=== PATIENT | female | born 1950 | race Caucasian/White ===

== ENCOUNTER → 2018-04-04 09:04 | Outpatient (CLI) | payer OTHER, MEDICARE, SELFPAY ==
--- NOTE | 2018-04-04 | DI.CT.S_ITS ---
PROCEDURE: CT CHEST WO CON INDICATIONS: atelectasis TECHNIQUE: Noncontrast 5 mm thick sections acquired from the pulmonary apices to the posterior costophrenic angles. 7 mm thick coronal and sagittal MIP reformats were then acquired. For radiation dose reduction, the following was used: automated exposure control, adjustment of mA and/or kV according to patient size. COMPARISON: , CT, ABDOMEN/PELVIS WITH CONTRAST, 03/11/2011, 12:39. [facility], CT, CT ANGIO CHEST PE, 09/23/2017, 10:53. FINDINGS: Image quality: Excellent. Lungs and pleura: An ill-defined 10 mm in diameter groundglass nodules present within the right middle lobe (series 3, image 30). This is unchanged when compared with the study dated 09/23/17. Mild atelectasis is present in the dependent lung bases. A 6 mm diameter nodule is present within the posterior right upper lobe (series 3, image 12). This is unchanged when compared with the study dated 09/23/17. No acute airspace opacities. No pleural effusion or pneumothorax. Mediastinum: Heart size is normal. No pericardial effusion. No mediastinal adenopathy by size criteria. Thoracic aorta and central pulmonary arteries are normal in size. Scattered atheromatous calcifications are present within the aortic arch. Esophagus is normal in caliber. No hiatal hernia. Bones and chest wall: No suspicious bony lesions. Severe degenerative changes present throughout the thoracic spine. No vertebral body compression fractures. No axillary or supraclavicular adenopathy by size criteria. Thyroid gland is unremarkable. Abdomen: Visualized upper abdominal solid organs and bowel loops appear normal in the absence of contrast. IMPRESSION: 1. Stable 10 mm ground glass nodule within the right middle lobe when compared with the study dated 09/23/17. Annual surveillance for 3 years recommended. Please see followup guidelines below. 2. Stable solid 5 mm pulmonary nodule in the left upper lobe when compared with the study dated 09/23/17. Twelve-month followup recommended. Fleischner Society criteria for SOLID lung nodule followup. Nodule size (mm)Low-risk patientHigh-risk patient?4No follow-up neededFollow-up at 12 mo; if no change, no further follow-up>[id number]-nf CT at 12 mo; if no change, no further follow-up needed.Initial follow-up CT at 6-12 mo, then 18-24 mo if no change. >6-8Initial follow-up CT at 6-12 mo, then 18-24 mo if no change. Initial follow-up CT at 3-6 mo, then 9-12 mo and 24 mo if no change. >8Follow-up CT at 3, 9, 24 mo. Or PET and/or biopsy.Same as for low-risk pts. Fleischner Society criteria for SUB-SOLID lung nodule followup. Solitary pure ground-glass nodules5 mm or lessNo followup needed. >5 mm3 mo follow-up CT to confirm persistence. Then annual CT for 3 years. Part-solid nodules3 mo follow-up CT to confirm persistence. If persistent with solid component <5 mm, annual CT for at least 3 years. If solid component is 5 mm or more, biopsy or surgical resection. Consider PET-CT for lesions > 10 mm. Multiple sub-solid nodulesPure ground glass nodules [address] at 2 and 4 years. Pure ground glass nodules >5 mm without dominant lesion. [address] to confirm persistence, then annual followup CT for at least 3 years. Dominant nodule(s) with part-solid or solid component. [address] to confirm persistence. If persistent, consider biopsy or surgical resection, chito if lesions have >5 mm solid component. Dictated by: Jayashree Hutchinson M.D. on 04/04/2018 at 9:41 Approved by: Jayashree Hutchinson M.D. on 04/04/2018 at 9:55
== END ==
PROVIDERS: Visit Provider Internal Medicine
DX: R91.8 Other nonspecific abnormal finding of lung field (principal)
CPT/HCPCS: 71250

== ENCOUNTER → 2019-10-16 14:32 | Outpatient (CLI) | payer MEDICARE, SELFPAY ==
--- NOTE | 2019-10-16 | DI.MG.S_ITS ---
BILATERAL DIGITAL SCREENING MAMMOGRAM 3D/2D WITH CAD: 10/16/2019 CLINICAL: Routine screening. Family history of breast cancer. Comparison is made to exams dated: 06/09/2015 mammogram, 05/22/2014 mammogram, and 03/31/2011 mammogram - [facility]. There are scattered fibroglandular elements in both breasts. Current study was also evaluated with a Computer Aided Detection (CAD) system. There are susan-shaped calcifications in both breasts consistent with benign secretory calcifications. There are right breast vascular calcifications. No significant masses, calcifications, or other findings are seen in either breast. IMPRESSION: There is no mammographic evidence of malignancy. A 1 year screening mammogram is recommended. This exam was interpreted at Station ID: [id number]. NOTE: For mammograms, a report in lay terms will be sent to the patient. Approximately 15% of breast malignancies will not be visualized mammographically. In the management of a palpable breast mass, a negative mammogram must not discourage biopsy of a clinically suspicious lesion. Electronically Signed By: Martin Cason M.D. ecl/:10/17/2019 17:18:40 letter sent: Normal Exam ACR BI-RADS Category 2: Benign Finding(s) 3342F
== END ==
PROVIDERS: Visit Provider Internal Medicine
DX: Z12.31 Encounter for screening mammogram for malignant neoplasm of breast (principal); Z80.3 Family history of malignant neoplasm of breast
CPT/HCPCS: 77063; 77067

== ENCOUNTER → 2019-10-23 13:00 | Outpatient (CLI) | payer MEDICARE, SELFPAY ==
--- NOTE | 2019-10-23 | DI.CT.S_ITS ---
PROCEDURE: CT CHEST WO CON INDICATIONS: Solitary pulmonary nodule TECHNIQUE: Noncontrast 2.0-2.5 mm thick sections acquired from the pulmonary apices to the posterior costophrenic angles. 7 mm thick axial MIP and 5 mm coronal and sagittal reformats were then acquired. A low radiation dose technique was utilized. COMPARISON: [facility], CT, CT CHEST WO CON, 04/04/2018, 9:10. FINDINGS: Image quality: Diagnostic, given the low radiation dose technique. Lungs and pleura: An ill-defined flat, a rounded 10 mm nodule is present along the right minor fissure corresponding to the nodule previously mentioned. 7 mm, smoothly marginated, pleural-based nodule is present posteriorly in the left upper lobe (3/57) previously present, but less well-seen secondary to slice selection. There are posterior medial atelectatic changes bilaterally. No new nodules or dense consolidations. No pleural effusions or pneumothorax. Mediastinum: Heart size is normal. Heavy coronary artery calcification. No pericardial effusion. No mediastinal adenopathy by size criteria. Thoracic aorta is normal size. Pulmonary artery outflow tract is enlarged measuring 3.5 cm in diameter, is similar compared to prior study. Esophagus is normal in caliber. No hiatal hernia. Bones and chest wall: No suspicious bony lesions. No vertebral body compression fractures. No axillary or supraclavicular adenopathy by size criteria. Thyroid gland is normal. There is scatter artifact from metallic left shoulder arthroplasty hardware. Abdomen: Visualized upper abdomen solid organs and bowel loops appear normal in the absence of contrast. IMPRESSION: 1. Ill-defined 10 mm right middle lobe nodule is seen along the minor fissure, likely an intrapulmonary lymph node. 2. Pleural-based, smooth, 7 mm posterior left upper lobe nodule, previously present and stable size. This is benign given 2 year stability. 3. Mild pulmonary artery outflow tract enlargement suggesting pulmonary artery hypertension. Clinical correlation recommended. As is not significantly changed compared to the prior study. 4. Heavy coronary artery calcification. Fleischner Society criteria for SOLID lung nodule followup. Nodule size (mm)Low-risk patientHigh-risk patient<6 (single or multiple)No routine followup.Optional CT at 12 months. 6-8 (single or multiple)CT at 6-12 months, then optional CT at 18-24 mo.CT at 6-12 months, then CT at 18-24 months. >8 (single)CT at 3 months, PET-CT, or biopsy. Same as for low-risk pts. >8 (multiple)CT at 3-6 months, then optional CT at 18-24 mo.CT at 3-6 months, then CT at 18-24 months. Recommendations do not apply to lung cancer screening, patients with immunosuppression, or patients with known primary cancer. Dictated by: Megha Warren M.D. on 10/23/2019 at 19:10 Approved by: Megha Warren M.D. on 10/23/2019 at 19:21
== END ==
PROVIDERS: Visit Provider Internal Medicine
DX: R91.8 Other nonspecific abnormal finding of lung field (principal); I25.10 Atherosclerotic heart disease of native coronary artery without angina pectoris; Z96.612 Presence of left artificial shoulder joint
CPT/HCPCS: 71250

== ENCOUNTER 2020-10-03 12:42 | Emergency (ER) | payer MEDICARE, SELFPAY ==
[2020-10-03 12:57] VITALS: BP 169/71; PULSE 83; RESP 20; TEMP 36.6; O2SAT 100; BMI 49.8
--- NOTE | 2020-10-03 13:00 | DI.RAD.S_ITS ---
PROCEDURE: XR RIBS RT MIN 3V W CXR 1V INDICATIONS: fall/ rib pain TECHNIQUE: 2 views of the right ribs were acquired, along with a single view chest. COMPARISON: [facility], CT, CT CHEST WO CON, 10/23/2019, 13:04. FINDINGS: Surgical changes and devices: None. Bones and chest wall: No fractures or dislocations. No suspicious bony lesions. Overlying soft tissues appear unremarkable. Left shoulder arthroplasty. Lungs and pleura: No pleural effusions or pneumothorax. Lungs appear clear. Mediastinum: Mediastinal contours appear normal. Heart size is within normal limits. IMPRESSION: No displaced right-sided rib fractures. Dictated by: Sahil Marinelli M.D. on 10/03/2020 at 12:52 Approved by: Sahil Marinelli M.D. on 10/03/2020 at 12:54
--- NOTE | 2020-10-03 14:02 | ED.FALL ---
HPI - Fall General Chief Complaint: Fall Stated Complaint: Fall, SOB, Hurts Real Bad, Possible Ribs Time Seen by Provider: 10/03/20 13:55 Source: patient and other (Patient has friend at bedside.) Mode of arrival: Wheelchair Limitations: no limitations History of Present Illness HPI Narrative: This is a 69-year-old female comes emergency department with complaint of a 7-10 days ago. She states that she fell she did hit her head, she had her ribs and she had bruising of her toes. Patient states that she takes an aspirin daily but no other anticoagulant. Patient did not have loss of consciousness. Denies any severe headaches, vision changes. She has had chest pain on the right side in the area of her ribs since then she describes is fairly mild initially was worse on the 2nd day and then has become increasingly worse over time. She did not appreciate any ecchymosis or other skin changes. She does have pain with inspiration, cough or movement. Patient denies any nausea, no emesis. No diarrhea or constipation no urinary symptoms. No new neck or back pain. Patient states she has been taking Tylenol which is somewhat helpful. She came in today as she was concerned as her pain has increased. She does have hypertension, dyslipidemia, diabetes in his can not currently controlled on oral medications for her diabetes with hemoglobin A1c of 7. She states she has had cholecystectomy as well as hysterectomy. She states codeine and hydrocodone make her hallucinate. She is unsure if she has ever had tramadol or oxycodone. She has been told not to take ibuprofen. Dr. Brooke is her primary care. Related Data Home Medications Medication Instructions Recorded Confirmed [LISINOPRIL/HCTZ] #0 03/11/11 aspirin 81 mg PO QDAY #0 03/11/11 carvedilol [Coreg] 12.5 mg PO BID #0 03/11/11 glimepiride [Amaryl] 4 mg PO BIDCC #0 03/11/11 lovastatin [Altoprev] 40 mg PO HS #0 03/11/11 metformin 1,000 mg PO BID #0 03/11/11 pioglitazone [Actos] 30 mg PO Q DAY #0 03/11/11 sertraline 50 mg PO QDAY #0 03/11/11 Previous Rx's Medication Instructions Recorded tramadol [Ultram] 50 mg PO Q6H PRN #20 tab 01/10/21 Allergies Allergy/AdvReac Type Severity Reaction Status Date / Time Sulfa (Sulfonamide Allergy Intermediate rash Verified 10/03/20 14:32 Antibiotics) [SULFA (SULFONAMIDE ANTIBIOTICS)] codeine [CODEINE] AdvReac Intermediate sick, Verified 10/03/20 14:32 dizzy, hallucinations erythromycin base AdvReac Mild hallucinati Verified 10/03/20 14:32 [From ERYTHROCIN] ons hydrocodone [HYDROCODONE] AdvReac Mild sick, Verified 10/03/20 14:32 dizzy, hallucinations Review of Systems Review of Systems ROS Unobtainable: All systems reviewed & are unremarkable except as noted in HPI and below Patient History Social History Smoking Status: Never smoker Smoking Status: Never smoker Substance Use Type: does not use Exam Narrative Exam Narrative: GEN: Patient appears in mild distress. HEAD: No evidence of trauma except for ecchymosis at the right lateral forehead, no raccoon/Benitez sign. NECK: Nontender, painless range of motion, trachea midline Negative for Nexus criteria, there is no mid line tenderness, distracting injury, altered mental status, neuro deficit, recent EtOH. EYES: PERRLA, EOMI ENT: External inspection normal, trachea is midline, TM's are normal no hemotypanum, Nares are clear, no septal hematoma, no dental or oral injury, airway is normal and with normal occlusion, No bony tenderness RESP: Chest is tender on the right lateral ankle ribs 6-8 range. No discrete point tenderness but patient is quite uncomfortable with palpation. She has symmetric movement, no ecchymosis, breath sounds are normal no crackles, wheezes or rales, no tachypnea. Patient has increased pain with movement or deep inspiration. No ecchymosis appreciated on the chest. CVS: Heart sounds are normal, no murmur noted, No JVD. ABG/GI: Nontender, soft, normal bowel sounds, no distention, no organomegaly. NEURO: Oriented AOx3, neuro is grossly intact, sensation and motor is normal all 4 extremities moving, cranial nerves II through XII are intact, GCS is 15 PSYCH: Normal mood and affect SKIN: Intact, warm and dry, no crepitus and without decubitus BACK: No CVA tenderness, no vertebral tenderness, no step-off's, no crepitus EXT: Atraumatic, hips are nontender, no pedal edema, normal color and temperature, normal range of motion of extremities with normal tendon exam, 2+ pulses in all four extremities Initial Vital Signs Initial Vital Signs: Vital Signs Temperature 97.9 F 10/03/20 12:57 Pulse Rate 83 10/03/20 12:57 Respiratory Rate 20 10/03/20 12:57 Blood Pressure 169/71 H 10/03/20 12:57 Pulse Oximetry 100 10/03/20 12:57 Scores GCS [place] coma scale eye opening: Spontaneous [place] coma scale verbal response: Orientated Ank[place] coma scale motor response: Obey commands Ankita coma scale total score: 15 Course Orders Ordered: ED Orders 10/03/20 13:00 XR ribs RT min 3V w CXR1V Stat Discontinued Medications Tramadol HCl (Tramadol 50 Mg Tablet) 50 mg PO NOW ONE Stop: 10/03/20 14:24 Last Admin: 10/03/20 14:33 Dose: 50 mg Documented by: ALYSSA Vital Signs Vital signs: Vital Signs - 8 hr 10/03/20 12:57 10/03/20 14:35 10/03/20 14:52 Temperature 97.9 F 97.8 F Pulse Rate 83 87 Respiratory Rate 20 12 Blood Pressure 169/71 H 179/77 H Pulse Oximetry 100 99 MDM - Fall Imaging Data Chest x-ray: Radiologist's Impression: [address] [id number] ReportSigned Patient: Sonya Victoria [facility]#: [id number]: 2Acct:[id number]/Sex: 69 / FDate of Service: 10/03/20Loc: EDAccession Number: [id number] Procedure: XR ribs RT min 3V w CXR1V Ordering Provider: Gini Stroud D.O. PROCEDURE: XR RIBS RT MIN 3V W CXR 1V INDICATIONS: fall/ rib pain TECHNIQUE: 2 views of the right ribs were acquired, along with a single view chest. COMPARISON: [facility], CT, CT CHEST WO CON, 10/23/2019, 13:04. FINDINGS: Surgical changes and devices: None. Bones and chest wall: No fractures or dislocations. No suspicious bony lesions. Overlying soft tissues appear unremarkable. Left shoulder arthroplasty. Lungs and pleura: No pleural effusions or pneumothorax. Lungs appear clear. Mediastinum: Mediastinal contours appear normal. Heart size is within normal limits. IMPRESSION: No displaced right-sided rib fractures. Dictated by: Sahil Marinelli M.D. on 10/03/2020 at 12:52 Approved by: Sahil Marinelli M.D. on 10/03/2020 at 12:54 [facility] Narrative Medical decision making narrative: Suspect rib contusion or nondisplaced rib fracture of the right lateral ribs. Patient was given incentive spirometer. Given a dose of Ultram here to see if this improved her symptoms and discharged home with a medications. She has had issues with narcotics in the past and hallucinations. She has not had Ultram before but recommended to watch closely. Patient does have some ecchymosis on her forehead, she is 10 days out, she does take aspirin but with no neurologic changes or other findings and I feel it would be appropriate to hold on Head CT at this time. Return precautions given. Patient friend at bedside. Discharge Plan Departure Patient Disposition: Home Clinical Impression: Contusion of rib on right side, Fall, Contusion of face Instructions: DI for Rib Fracture Activity Restrictions/Additional Instructions: Follow-up with your physician in the next 3-5 days for recheck if you are not continuing to have improvement. You may take Tylenol up to a 1000 mg every 8 hours as needed for pain. If this is not adequate take narcotic pain medication for breakthrough pain. Take pain medication as prescribed, this medication can make you sleepy do not drive, perform hazardous activities or make any major decisions while taking it. Take a stool softener while taking this medication. You may take Colace 1-2 times daily until your stools are soft. Make sure your also drinking plenty of water. Use incentive spirometer each hour while you are awake. Return to the ER for fevers, rapidly worsening chest pain, shortness of breath, lightheadedness or passing out, persistent vomiting, new neck or back pain, new numbness, tingling or weakness, coughing up blood or other new or concerning symptoms. Prescriptions: New tramadol [Ultram] 50 mg tablet 50 mg PO Q6H PRN (Reason: pain) Qty: 20 RF: 0 No Action carvedilol [Coreg] 12.5 MG tablet 12.5 mg PO BID Qty: 0 RF: 0 lovastatin [Altoprev] 40 MG tablet extended release 24 hr 40 mg PO HS Qty: 0 RF: 0 glimepiride [Amaryl] 4 MG tablet 4 mg PO BIDCC Qty: 0 RF: 0 [LISINOPRIL/HCTZ] Qty: 0 RF: 0 metformin 1,000 MG tablet 1,000 mg PO BID Qty: 0 RF: 0 pioglitazone [Actos] 30 MG tablet 30 mg PO Q DAY Qty: 0 RF: 0 sertraline 50 MG tablet 50 mg PO QDAY Qty: 0 RF: 0 aspirin 81 MG tablet,delayed release (DR/EC) 81 mg PO QDAY Qty: 0 RF: 0 Referrals: New Brooke MD [Primary Care Provider] -
[2020-10-03] MEDS: TRAMADOL 50 MG TABLET PO (14:33)
[2020-10-03 14:35] VITALS: BP 179/77; PULSE 87; RESP 12; O2SAT 99
[2020-10-03 14:52] VITALS: TEMP 36.6
== END 2020-10-03 14:59 | disposition home or self-care (01) ==
PROVIDERS: Emergency Provider Emergency Medicine; PCP Internal Medicine
DX: S20.211A Contusion of right front wall of thorax, initial encounter (principal); S00.83XA Contusion of other part of head, initial encounter; S90.122A Contusion of left lesser toe(s) without damage to nail, initial encounter; S90.121A Contusion of right lesser toe(s) without damage to nail, initial encounter; W19.XXXA Unspecified fall, initial encounter; Z79.82 Long term (current) use of aspirin; I10 Essential (primary) hypertension; E78.5 Hyperlipidemia, unspecified; E11.9 Type 2 diabetes mellitus without complications
CPT/HCPCS: 71101; 99283

== ENCOUNTER → 2020-10-15 18:52 | Outpatient (ROUT) | payer MEDICARE, SELFPAY ==
[2020-10-15 19:38] LABS: Add Manual Diff / Slide Review NO; Basophils Absolute Auto 100 /uL (0-100); Eosinophils Absolute Auto 300 /uL (0-450); Eosinophils Percent Auto 4.8 % (2-4); Hematocrit 33.8 % (36-46); Hemoglobin 10.7 g/dL (12.0-16.0); Lymphocytes Absolute Auto 1100 /uL (1100-4500); Lymphocytes Percent Auto 20.6 % (25-40); Mean Corpuscular HGB Conc 31.6 % (30-36); Mean Corpuscular Hemoglobin 28.5 PG (26-34); Mean Corpuscular Volume 90.1 fL (80-100); Monocytes Absolute Auto 300 /uL (0-900); Monocytes Percent Auto 5.9 % (3-14); Neutrophils Absolute Auto 3600 /uL (1500-7000); Neutrophils Percent Auto 67.7 % (50-75); Platelet Count 227 X10^3/uL (150-400); Red Blood Cell Count 3.75 X10^6/uL (4.0-5.2); Red Cell Distribution Width 16.7 % (11.6-14.8); White Blood Cell Count 5.3 X10^3/uL (4.5-11.0)
[2020-10-15 19:44] LABS: Alanine Aminotransferase 9 IU/L (<35); Alkaline Phosphatase 93 U/L (38-126); Aspartate Aminotransferase 18 IU/L (14-36); BUN Creatinine Ratio 31.7 (6-22); Bilirubin Total 0.5 mg/dL (0.2-1.3); Blood Urea Nitrogen 32 mg/dL (7-17); Calcium 9.2 mg/dL (8.4-10.2); Carbon Dioxide 36 mmol/L (22-32); Chloride 97 mmol/L (98-107); Estimated Glomerular Filt Rate 54.5 mL/min (>60); Glucose 206 mg/dL (80-110); HEMOLYSIS < 15 (0-50); Iron 52 ug/dL (37-170); Potassium 4.3 mmol/L (3.4-5.1); Sodium 140 mmol/L (137-145)
[2020-10-15 19:58] LABS: Percent Iron Saturation 14 % (15-50); Total Iron Binding Capacity 384 ug/dL (265-497); Transferrin 290 mg/dL (206-381)
== END ==
PROVIDERS: PCP Internal Medicine; Visit Provider Internal Medicine
DX: I10 Essential (primary) hypertension (principal); D50.8 Other iron deficiency anemias; E11.9 Type 2 diabetes mellitus without complications
CPT/HCPCS: 80053; 83036; 83540; 83550; 85025

== ENCOUNTER → 2021-01-10 18:43 | Outpatient (ROUT) | payer MEDICARE, SELFPAY ==
[2021-01-10 19:27] LABS: Add Manual Diff / Slide Review NO; Basophils Absolute Auto 100 /uL (0-100); Basophils Percent Auto 1.2 % (0-2); Eosinophils Absolute Auto 300 /uL (0-450); Eosinophils Percent Auto 5.9 % (2-4); Hematocrit 31.5 % (36-46); Hemoglobin 10.4 g/dL (12.0-16.0); Lymphocytes Absolute Auto 900 /uL (1100-4500); Lymphocytes Percent Auto 19.1 % (25-40); Mean Corpuscular HGB Conc 33.1 % (30-36); Mean Corpuscular Hemoglobin 29.8 PG (26-34); Mean Corpuscular Volume 89.9 fL (80-100); Monocytes Absolute Auto 300 /uL (0-900); Monocytes Percent Auto 6.4 % (3-14); Neutrophils Absolute Auto 3200 /uL (1500-7000); Neutrophils Percent Auto 67.4 % (50-75); Platelet Count 202 X10^3/uL (150-400); Red Blood Cell Count 3.51 X10^6/uL (4.0-5.2); Red Cell Distribution Width 15.8 % (11.6-14.8); White Blood Cell Count 4.8 X10^3/uL (4.5-11.0)
[2021-01-10 19:45] LABS: HEMOLYSIS < 15 (0-50); Iron 59 ug/dL (37-170)
[2021-01-10 19:46] LABS: Hemoglobin A1C% w Est Avg Glu 7.5 % (4.0-6.0)
[2021-01-10 19:50] LABS: Alanine Aminotransferase 11 IU/L (<35); Albumin 3.8 g/dL (3.5-5.0); Albumin Globulin Ratio 0.9 (1.0-2.8); Alkaline Phosphatase 100 U/L (38-126); Aspartate Aminotransferase 20 IU/L (14-36); BUN Creatinine Ratio 30.9 (6-22); Bilirubin Total 0.6 mg/dL (0.2-1.3); Blood Urea Nitrogen 25 mg/dL (7-17); Calcium 9.2 mg/dL (8.4-10.2); Carbon Dioxide 30 mmol/L (22-32); Chloride 101 mmol/L (98-107); Estimated Glomerular Filt Rate > 60.0 mL/min (>60); Globulin 4.1 g/dL (1.7-4.1); Glucose 145 mg/dL (80-110); HEMOLYSIS < 15 (0-50); Potassium 4.5 mmol/L (3.4-5.1); Sodium 140 mmol/L (137-145); Total Protein 7.9 g/dL (6.3-8.2)
[2021-01-10 19:58] LABS: Percent Iron Saturation 18 % (15-50); Total Iron Binding Capacity 335 ug/dL (265-497); Transferrin 253 mg/dL (206-381)
== END ==
PROVIDERS: PCP Internal Medicine; Visit Provider Internal Medicine
DX: Z00.00 Encounter for general adult medical examination without abnormal findings (principal); I10 Essential (primary) hypertension; E11.9 Type 2 diabetes mellitus without complications; K29.51 Unspecified chronic gastritis with bleeding
CPT/HCPCS: 80053; 83036; 83540; 83550; 85025

== ENCOUNTER → 2021-12-27 14:28 | Outpatient (CLI) | payer MEDICARE, SELFPAY ==
--- NOTE | 2021-12-27 | DI.MG.S_ITS ---
BILATERAL DIGITAL SCREENING MAMMOGRAM 3D/2D WITH CAD: 12/27/2021 CLINICAL: Routine screening. Family history of breast cancer. Comparison is made to exams dated: 10/16/2019 mammogram - [facility] and 06/09/2015 mammogram - [facility]. There are scattered fibroglandular elements in both breasts. Current study was also evaluated with a Computer Aided Detection (CAD) system. There are benign calcifications in both breasts. No significant masses, calcifications, or other findings are seen in either breast. There has been no significant interval change. IMPRESSION: BENIGN There is no mammographic evidence of malignancy. A 1 year screening mammogram is recommended. This exam was interpreted at Station ID: [id number]. NOTE: For mammograms, a report in lay terms will be sent to the patient. Approximately 15% of breast malignancies will not be visualized mammographically. In the management of a palpable breast mass, a negative mammogram must not discourage biopsy of a clinically suspicious lesion. Electronically Signed By: George sung/christiana:12/27/2021 16:47:56 letter sent: Normal Exam ACR BI-RADS Category 2: Benign Finding(s) 3342F
== END ==
PROVIDERS: PCP Internal Medicine; Referring Provider Internal Medicine; Visit Provider Internal Medicine
DX: Z78.0 Asymptomatic menopausal state (principal); Z12.31 Encounter for screening mammogram for malignant neoplasm of breast; Z80.3 Family history of malignant neoplasm of breast; Z13.820 Encounter for screening for osteoporosis; M85.852 Other specified disorders of bone density and structure, left thigh
CPT/HCPCS: 77063; 77067; 77080

== ENCOUNTER → 2022-04-21 09:48 | Outpatient (CLI) | payer MEDICARE, SELFPAY ==
[2022-04-21 11:08] LABS: COVID19 -Nasal RAPID Negative (Negative)
== END ==
PROVIDERS: PCP Internal Medicine; Visit Provider Surgery
DX: Z01.812 Encounter for preprocedural laboratory examination (principal); Z20.822 Contact with and (suspected) exposure to COVID-19
CPT/HCPCS: 87635; C9803

== ENCOUNTER 2022-04-24 11:16 | Day surgery (SDC) | payer MEDICARE, SELFPAY ==
--- NOTE | 2022-04-24 | PATH_ITS ---
[facility] Accession Number: [id number] . 01 Material submitted: . PART A: colon - TRANSVERSE COLON POLYP PART B: colon - CECAL POLYPS . 01 Clinical history: . SCREENING COLONOSCOPY W/POSS BX . 01 Diagnosis: A. Transverse Colon Polyp, Biopsy: Tubular adenoma. . B. Cecal Polyps, Biopsy: Tubular adenoma(s). Sessile serrated adenoma. MRV 04/26/2022 1219 Local . 01 Electronically signed: . Renee Mercer MD, Pathologist NPI- [id number] . 01 Gross description: . Part A: TRANSVERSE COLON POLYP: Received in formalin is 1 fragment(s) of villanueva, soft tissue measuring 0.3 x 0.1 x 0.1 cm submitted entirely in 1 cassette(s) Part B: CECAL POLYPS: Received in formalin are 3 fragment(s) of villanueva, soft tissue measuring 0.7 x 0.2 x 0.2 cm to 0.4 x 0.2 x 0.2 cm submitted entirely in 1 cassette(s) /CPE 04/25/2022 0516 Local . 01 Pathologist provided ICD-10: D12.3, D12.0 . 01 CPT . 225156, 040384 Specimen Comment: A courtesy copy of this report has been sent to [phone] Performed at: 01 [facility] [address] [place] [address] [address] [facility], [place], [place] [id number] MD Jonnie Pinon MD Phone: [phone]
[2022-04-24] MEDS: SODIUM CHLORIDE 0.9% 1,000 ML 84 ML IV (11:45)
[2022-04-24 11:58] VITALS: BP 188/85; PULSE 99; RESP 20; TEMP 36.5; O2SAT 98; BMI 49.5
--- NOTE | 2022-04-24 12:53 | PM.HP.1 ---
History of Present Illness History of Present Illness Date Patient Seen: 04/24/22 Time Patient Seen: 12:53 Chief complaint: SCREENING COLONOSCOPY W/POSS BX Narrative: I reviewed my note from March 01. No significant changes. Patient History Family & Social History Social History: household members friend(s) Tobacco & Substance use: Smoking Status Never smoker alcohol intake former Substance Use Type does not use Meds Home Medications and Allergies Home Medications Medication Instructions Recorded Confirmed Type [LISINOPRIL/HCTZ] ##0 03/11/11 History aspirin 81 mg tablet,delayed 81 mg PO QDAY ##0 03/11/11 04/24/22 History release carvedilol 12.5 mg tablet (Coreg) 12.5 mg PO BID ##0 03/11/11 04/24/22 History glimepiride 4 mg tablet (Amaryl) 4 mg PO BIDCC ##0 03/11/11 04/24/22 History lovastatin 40 mg tablet,extended 40 mg PO HS ##0 03/11/11 04/24/22 History release 24 hr (Altoprev) metformin 1,000 mg tablet 1,000 mg PO BID ##0 03/11/11 04/24/22 History pioglitazone 30 mg tablet (Actos) 30 mg PO Q DAY ##0 03/11/11 04/24/22 History sertraline 50 mg tablet 50 mg PO QDAY ##0 03/11/11 04/24/22 History furosemide 20 mg tablet 20 mg PO DAILY 04/24/22 04/24/22 History losartan 100 mg tablet 100 mg PO DAILY 04/24/22 04/24/22 History omeprazole 20 mg capsule,delayed 20 mg PO DAILY 04/24/22 04/24/22 History release Allergies Allergy/AdvReac Type Severity Reaction Status Date / Time Sulfa (Sulfonamide Allergy Intermediate rash Verified 04/24/22 11:40 Antibiotics) [SULFA (SULFONAMIDE ANTIBIOTICS)] codeine [CODEINE] AdvReac Intermediate sick, Verified 04/24/22 11:40 dizzy, hallucinations erythromycin base AdvReac Mild hallucinati Verified 04/24/22 11:40 [From ERYTHROCIN] ons hydrocodone [HYDROCODONE] AdvReac Mild sick, Verified 04/24/22 11:40 dizzy, hallucinations Review of Systems Review of Systems ROS: Yes All systems reviewed with the patient and are negative except as otherwise documented Exam Vital Signs (past 8 hours): - 04/24/22 11:58 Temperature 97.7 F Pulse Rate 99 H Respiratory Rate 20 Blood Pressure 188/85 H Pulse Oximetry 98 Oxygen Delivery Method Room Air Oxygen Delivery Method Room Air Const General: cooperative HENMT Head: normal to inspection Eyes General: appearance normal, both eyes and all related structures Neck Neck: normal visual inspection Chest Chest: normal inspection of the chest Resp Effort & Inspection: normal respiratory effort Cardio Rate: regular rate GI Inspection: normal to inspection Skin General: no rashes or lesions noted Neuro General: patient alert and patient awake Extrem General: normal to inspection Right lower extremity: edema Left lower extremity: edema Psych Appearance: grossly normal Assessment & Plan Assessment & Plan narrative: 71-year-old female indicated for colon cancer screening. Anemia has resolved. Colonoscopy is pursued today. Time Spent With Patient Critical Care time: I spent a total of [] minutes of critical care time on this patient's care today; this time is exclusive of procedural time.
--- NOTE | 2022-04-24 12:55 | PM.PREOP ---
Pre-operative Note COVID-19 COVID-19 status: Negative Result date/Date tested (Pos, Neg/Pending): 04/21/22 Criteria for continued procedure: Possibility delay results in more complex future surgery or treatment Interval Note History & Physical reviewed/Exam performed by Physician: Yes Changes to H&P: No ASA Class (for procedural sedation): III
--- NOTE | 2022-04-24 13:33 | PM.OP.COLON ---
Operative Date/Time/Diagnoses Date of procedure: 04/24/22 Time of procedure: 13:34 Pre-op diagnosis: Colon cancer screening. Post-op diagnosis: same Procedure & Clinicians Study performed: Colonoscopy with hot snare polypectomy and cold forceps polypectomy Same procedure as scheduled: Yes Indications: Colon cancer screening Surgeon: Shoaib Castillo Procedure Notes SCOAP/Timeout: Done Procedure in detail: After the risks and benefits were explained, written and verbal informed consent was obtained. The patient was brought into the procedure room and placed into the left lateral decubitus position. Conscious sedation medication was applied as per nursing documentation. Digital rectal examination was accomplished. The scope was introduced into the patient and advanced under direct visualization to the cecum as identified by the appendiceal orifice and ileocecal valve. The scope was slowly withdrawn to carefully examine the mucosa for any defects or lesions. Comprehensive imaging was accomplished throughout the rectum including the dentate line. The colon was decompressed, the scope was then removed from the patient who tolerated the procedure well. Pediatric colonoscope Bowel prep adequate Scope withdrawal time: 13 minutes Sedation minutes: 30 Complications: none Impression: There was fairly extensive diverticulosis noted throughout the sigmoid colon. In the transverse there was a diminutive polyp removed with cold forceps. In the cecum there were 3 polyps. One was diminutive and removed with cold forceps the 2nd was semi pedunculated and measured perhaps 7 mm in greatest dimension. This was removed with hot snare. A 3rd 7-8 mm sessile polyp was also removed with hot snare. No additional pathology was appreciated throughout. Endoscopic diagnosis 1. Diverticulosis 2. Colon polyps Post-procedure Plan for aftercare: 1. Await histopathology 2. Timing of surveillance colonoscopy recommendations will be made following pathology review. Disposition: PACU
[2022-04-24 13:37] VITALS: BP 131/41; PULSE 94; RESP 21; TEMP 36.8; O2SAT 99
[2022-04-24 13:41] VITALS: BP 127/69; PULSE 97; RESP 18; TEMP 37.1; O2SAT 99
[2022-04-24 13:47] VITALS: BP 169/81; PULSE 90; RESP 20; TEMP 37; O2SAT 98
[2022-04-24 13:51] VITALS: BP 148/69; PULSE 93; RESP 16; TEMP 37.2; O2SAT 99
== END 2022-04-24 14:20 | disposition home or self-care (01) ==
PROVIDERS: PCP Internal Medicine; Referring Provider Internal Medicine Gastroenterology; Visit Provider Internal Medicine Gastroenterology
PROC: 0DJD8ZZ Inspection of Lower Intestinal Tract, Via Natural or Artificial Opening Endoscopic (ICD-10-PCS; CPT 45378; principal; 2022-04-24 13:00)
DX: Z12.11 Encounter for screening for malignant neoplasm of colon (principal); K57.30 Diverticulosis of large intestine without perforation or abscess without bleeding; D12.0 Benign neoplasm of cecum; D12.3 Benign neoplasm of transverse colon
CPT/HCPCS: 45385; 45380; J2704

== ENCOUNTER → 2023-01-06 10:42 | Outpatient (CLI) | payer MEDICARE, SELFPAY ==
--- NOTE | 2023-01-06 10:44 | DI.MG.S_ITS ---
BILATERAL DIGITAL SCREENING MAMMOGRAM 3D/2D WITH CAD: 01/06/2023 CLINICAL: Routine screening. Family history of breast cancer. Comparison is made to exams dated: 12/27/2021 mammogram, 10/16/2019 mammogram - [facility], and 06/09/2015 mammogram - [facility]. There are scattered areas of fibroglandular density in both breasts (category b / 25%-50% glandular tissue). Current study was also evaluated with a Computer Aided Detection (CAD) system. There are benign calcifications in both breasts. No significant masses, calcifications, or other findings are seen in either breast. There has been no significant interval change. IMPRESSION: BENIGN There is no mammographic evidence of malignancy. A 1 year screening mammogram is recommended. Based on the Tyrer Cuzick model (a risk assessment model) the patient's lifetime risk is 7.3% and her 10 year risk is 5.0%. According to the ACR, ACS, and NCCN guidelines, an annual breast MRI exam along with mammogram is recommended if the patient's lifetime risk is 20% or greater. This exam was interpreted at Station ID: [id number]. NOTE: For mammograms, a report in lay terms will be sent to the patient. Approximately 15% of breast malignancies will not be visualized mammographically. In the management of a palpable breast mass, a negative mammogram must not discourage biopsy of a clinically suspicious lesion. Electronically Signed By: Mike cisneros/christiana:01/08/2023 10:15:11 letter sent: Normal Exam ACR BI-RADS Category 2: Benign Finding(s) [id number]
== END ==
PROVIDERS: Referring Provider Internal Medicine; Visit Provider Internal Medicine
DX: Z12.31 Encounter for screening mammogram for malignant neoplasm of breast (principal); Z80.3 Family history of malignant neoplasm of breast
CPT/HCPCS: 77063; 77067

== ENCOUNTER → 2024-01-17 15:14 | Outpatient (CLI) | payer MEDICARE, SELFPAY ==
--- NOTE | 2024-01-17 15:17 | DI.MG.S_ITS ---
BILATERAL DIGITAL SCREENING MAMMOGRAM 3D/2D WITH CAD: 01/17/2024 CLINICAL: Routine screening. Family history of breast cancer. Comparison is made to exams dated: 12/27/2021 mammogram, 10/16/2019 mammogram, and 01/06/2023 mammogram - [facility]. There are scattered areas of fibroglandular density in both breasts (category b / 25%-50% glandular tissue). Current study was also evaluated with a Computer Aided Detection (CAD) system. There are benign calcifications in both breasts. There also are benign vascular calcifications in both breasts. No significant masses, calcifications, or other findings are seen in either breast. There has been no significant interval change. IMPRESSION: BENIGN There is no mammographic evidence of malignancy. A 1 year screening mammogram is recommended. Based on the Tyrer Cuzick model (a risk assessment model) the patient's lifetime risk is 6.9% and her 10 year risk is 5.2%. According to the ACR, ACS, and NCCN guidelines, an annual breast MRI exam along with mammogram is recommended if the patient's lifetime risk is 20% or greater. This exam was interpreted at Station ID: [id number]. NOTE: For mammograms, a report in lay terms will be sent to the patient. Approximately 15% of breast malignancies will not be visualized mammographically. In the management of a palpable breast mass, a negative mammogram must not discourage biopsy of a clinically suspicious lesion. Electronically Signed By: Jayashree le/christiana:01/18/2024 13:30:42 letter sent: Normal Exam ACR BI-RADS Category 2: Benign Finding(s) 3342F
== END ==
PROVIDERS: PCP Student in an Organized Health Care Education/Training Program; Referring Provider Student in an Organized Health Care Education/Training Program; Visit Provider Student in an Organized Health Care Education/Training Program
DX: Z12.31 Encounter for screening mammogram for malignant neoplasm of breast (principal); Z80.3 Family history of malignant neoplasm of breast; R92.323 Mammographic fibroglandular density, bilateral breasts
CPT/HCPCS: 77063; 77067

== ENCOUNTER → 2024-08-20 11:14 | Outpatient (CLI) | payer MEDICARE, SELFPAY ==
--- NOTE | 2024-08-20 11:17 | DI.US.S_ITS ---
PROCEDURE: US ABDOMEN LIMITED INDICATIONS: mass right lower pannus/ diminished peripheral pul TECHNIQUE: Real-time focused scanning was performed of the abdomen, with image documentation. COMPARISON: None. FINDINGS: Scanning is performed at the area of clinical concern. Within this region, there is heterogeneous tissue, without a focal abnormality seen. IMPRESSION: Highly limited ultrasound, without a cause of the patient's presenting history identified. Please consider follow-up CT with at least IV contrast for further evaluation (assuming that there is no contraindication). Dictated by: Romulo Doherty M.D. on 08/20/2024 at 16:24 Approved by: Romulo Doherty M.D. on 08/20/2024 at 16:25
--- NOTE | 2024-08-20 11:17 | DI.US.S_ITS ---
PROCEDURE: US ARTERIAL DUPLEX LE BI INDICATIONS: DIMINSHED PERIPHERAL PULSES TECHNIQUE: Color and pulse Doppler interrogation was performed of both lower extremity arterial systems, with image documentation. COMPARISON: None. FINDINGS: Right lower extremity: Common femoral artery: 226 cm/sec, with triphasic flow. Deep femoral artery: 106 cm/sec, with biphasic flow. Proximal superficial femoral artery: 208 cm/sec, with triphasic flow. Mid superficial femoral artery: 129 cm/sec, with biphasic flow. Distal superficial femoral artery: 105 cm/sec, with biphasic flow. Popliteal artery: 73 cm/sec, with biphasic flow. Posterior tibial artery: 97 cm/sec, with triphasic flow. Anterior tibial artery/dorsalis pedis: 141 cm/sec, with triphasic flow. Leach-scale imaging description: No hemodynamically significant plaque noted. All waveforms normal. Somewhat suboptimal visualization of mid and distal SFA secondary to increased depth from the probe. Left lower extremity: Common femoral artery: 215 cm/sec, with triphasic flow. Deep femoral artery: 110 cm/sec, with triphasic flow. Proximal superficial femoral artery: 139 cm/sec, with triphasic flow. Mid superficial femoral artery: 131 cm/sec, with triphasic flow. Distal superficial femoral artery: 115 cm/sec, with biphasic flow. Popliteal artery: 63 cm/sec, with biphasic flow. Posterior tibial artery: 135 cm/sec, with triphasic flow. Anterior tibial artery/dorsalis pedis: 157 cm/sec, with triphasic flow. Leach-scale imaging description: No hemodynamically significant stenosis. Normal waveforms. Somewhat suboptimal visualization of the mid and distal SFA secondary to distance from the probe. IMPRESSION: 1. No hemodynamically significant stenosis noted in the bilateral lower extremity arterial tree. 2. Normal waveforms. Dictated by: Nathaniel Lopez M.D. on 08/22/2024 at 9:31 Approved by: Nathaniel Lopez M.D. on 08/22/2024 at 9:35
== END ==
PROVIDERS: PCP Family Medicine; Referring Provider Nurse Practitioner Family; Visit Provider Nurse Practitioner Family
DX: R19.03 Right lower quadrant abdominal swelling, mass and lump (principal); R09.89 Other specified symptoms and signs involving the circulatory and respiratory systems
CPT/HCPCS: 76705; 93925

== ENCOUNTER → 2024-09-18 13:37 | Outpatient (CLI) | payer MEDICARE, SELFPAY ==
--- NOTE | 2024-09-18 13:38 | DI.ECHO.S_ITS ---
[facility]---------+ [facility] : : [address] : : [place] : : [id number] : : Phone: [phone] Echocardiogram Report + + :Name: ABBY ROYAL Study Date: 09/18/2024 Height: 62 in : :Hospital ReadingLocation: Weight: 250 lb : : Gender: Female BSA: 2.1 m2 : :: 1950 Age: 73 yrs BP: 188/94 mmHg: :Reason For Study: SWELLING OF LEGS, ATRIAL FIBRILLATION : :Ordering Physician: CHUCKIE, : :MARIA ALEJANDRA Performed By: Omar Camara : :Referring: UNSPECIFIED : + + Interpretation Summary Afib with controlled rate. Normal LV size and mildly increased wall thickness; normal wall motion and LV systolic function. EF is 55-60%. Moderate LA enlargement and mild RA enlargement. Moderate eccentric posterolaterally directed mitral regurgitation without obvious prolapse or flail. Most likely this is nue to tethered posterior leaflet. Estimated PA systolic pressure is 84 mm hg assuming RA pressure of 15 mm Hg. Compared to prior echo 09/23/2017, afib is new; elevated PA systolic pressure is new. Procedure: A two-dimensional transthoracic echocardiogram with color flow and Doppler was performed. The study quality was technically adequate. Comparison is made with the echocardiogram of 09/23/2017. The patient was in atrial fibrillation with heart rates between 92-110 bpm during the exam. Left Ventricle: The left ventricle is normal in size. Left ventricular wall thickness is mildly increased. There is no ventricular septal defect visualized. The ejection fraction is estimated to be 55-60%. There are no focal wall motion abnormalities. Diastolic function could not be accurately assessed due to atrial fibrillation. Right Ventricle: The right ventricle is normal in size and function. Atria: The left atrium is moderately dilated. The right atrium is mildly dilated. There is no Doppler evidence for an interatrial shunt. Mitral Valve: There is mild mitral annular calcification. The mitral valve leaflets appear mildly thickened, but open well. There is moderate mitral regurgitation. The mitral regurgitant jet is eccentrically directed. Aortic Valve: The aortic valve is trileaflet. The aortic valve is mildly calcified. No aortic regurgitation is present. Tricuspid Valve: The tricuspid valve leaflets are thin and pliable. There is mild to moderate tricuspid regurgitation. The right ventricular systolic pressure is estimated to be at least 83 mmHg based on an estimated right atrial pressure of 15 mm Hg. Pulmonic Valve: The pulmonic valve is not well visualized. There is trace pulmonic regurgitation. Great Vessels: The aortic root is normal size. The ascending aorta could not be visualized. The pulmonary artery is normal size. The IVC is dilated (diameter is greater than 2.1 cm) and it collapses less than 50% with a sniff. This suggests a high right atrial pressure of 15 mm Hg. Pericardium/ Pleura There is no pericardial effusion. There is no pleural effusion. MMode/2D Measurements & Calculations LVIDd: 5.2 cm LVOT diam: 1.9 cm LVIDs: 3.7 cm Ao root diam: 3.1 cm FS: 27.5 % EPSS: 0.64 cm IVSd: 1.2 cm LVPWd: 1.2 cm LV germain. diameter/BSA (cm/m^2): 2.5 LV sys. diameter/BSA (cm/m^2): 1.8 LA A2 area: 25.3 cm2 RA long axis: 5.2 cm LA A4 area: 30.4 cm2 RA area: 19.7 cm2 LA length (vol): 6.9 cm RA vol: 63.6 ml LA vol: 95.1 ml RA : 30.2 ml/m2 LA vol index: 45.3 ml/m2 IVC diam: 2.8 cm RVD1 (basal): 3.6 cm RVD2 (mid): 3.3 cm TAPSE: 2.1 cm Doppler Measurements & Calculations Ao V2 max: 146.7 cm/sec LVOT Max Jeromy: 74.9 cm/sec Ao V2 mean: 95.1 cm/sec LV V1 max P.2 mmHg Ao max P.6 mmHg LV V1 VTI: 14.9 cm Ao mean P.4 mmHg JUDY(I,D): 1.4 cm2 Ao V2 VTI: 30.8 cm JUDY(V,D): 1.5 cm2 sev ratio: 0.48 JUDY indexed to BSA (cm^2/m^2): 0.66 MV E max jeromy: 148.7 cm/sec TR max jeromy: 416.3 cm/sec MV A max jeromy: 38.4 cm/sec TR max P.3 mmHg MV E/A: 3.9 PA V2 max: 99.7 cm/sec Med Peak E' Jeromy: 6.5 cm/sec PA V2 mean: 64.2 cm/sec E/E' med: 22.8 PA mean P.9 mmHg Lat Peak E' Jeromy: 8.2 cm/sec PA pr(Accel): 32.8 mmHg E/E' lat: 18.0 E/e' average: 20.4 MV dec time: 0.13 sec SV(LVOT): 42.5 ml Electronically signed by: Olivia Lowery M.D. on Reading Physician:09/18/2024 10:34 PM
== END ==
PROVIDERS: PCP Family Medicine; Referring Provider Nurse Practitioner Family; Visit Provider Nurse Practitioner Family
DX: I08.1 Rheumatic disorders of both mitral and tricuspid valves (principal); R60.0 Localized edema
CPT/HCPCS: 93306

== ENCOUNTER → 2025-02-26 14:34 | Outpatient (CLI) | payer MEDICARE, SELFPAY ==
--- NOTE | 2025-02-26 14:40 | DI.MG.S_ITS ---
MM screening mammo BI: 02/26/2025. BI-RADS: 2 CLINICAL: 74-year old female for bilateral screening mammogram. Tyrer-Cuzick lifetime risk of 3.3%. No personal or first-degree family history of breast cancer. PRIOR EXAMS 01/17/2024, 01/06/2023, 12/27/2021, 10/16/2019, 06/09/2015. MAMMOGRAPHY TECHNIQUE: 2D and 3D (tomosynthesis) digital mammographic views obtained, with additional images as needed for full coverage. Current study was also evaluated with a Computer Aided Detection (CAD) system. DENSITY B. There are scattered areas of fibroglandular density. MAMMOGRAPHY FINDINGS Bilateral: Benign-appearing calcifications noted. There are no suspicious masses, calcifications, or other findings in the breast. IMPRESSION: * No evidence of malignancy with benign findings. RECOMMENDATIONS Bilateral * Annual screening mammography. OVERALL ASSESSMENT CATEGORY BI-RADS-2: Benign. The [employer] recommends annual screening mammography beginning at age 40 for women with average risk of breast cancer. ELECTRONICALLY SIGNED: Mike Fischer M.D. on 02/27/2025 at 11:33:04 PM PT Interpreting Station ID: [id number]
== END ==
PROVIDERS: PCP Nurse Practitioner Family; Referring Provider Nurse Practitioner Family; Visit Provider Nurse Practitioner Family
DX: Z12.31 Encounter for screening mammogram for malignant neoplasm of breast (principal)
CPT/HCPCS: 77063; 77067

== ENCOUNTER → 2025-06-15 12:30 | Outpatient (CLI) | payer MEDICARE, SELFPAY ==
--- NOTE | 2025-06-15 12:33 | DI.ECHO.S_ITS ---
[facility]---------+ [facility] : : [address] : : [place] : : [id number] : : Phone: [phone] Echocardiogram Report + + :Name: ABBY ROYAL Study Date: 06/15/2025 Height: 64 in : :[facility] ReadingLocation: Weight: 189 lb : : Gender: Female BSA: 1.9 m2 : :: 1950 Age: 74 yrs BP: 161/92 mmHg: :Reason For Study: CHRONIC ATRIAL FIBRILLATION : :Ordering Physician: GUDELIA RYDER Performed By: Luz Elizabeth : :Referring: GUDELIA RYDER : + + Interpretation Summary - The left ventricular contractility is normal. Estimated ejection fraction is greater than 55% with no segmental wall motion abnormalities. No LVH. Unable to comment on diastolic function. - The right ventricular contractility is borderline. - Biatrial enlargement noted. The right atrium and right ventricle are of normal size. - Moderate eccentric mitral regurgitation without obvious prolapse. - Mild tricuspid regurgitation with estimated pulmonary systolic artery pressures of 61 mmHg. - No obvious intracardiac shunts. - No obvious intracardiac masses nor thrombi. - No hemodynamically significant pericardial effusion. - Normal right-sided filling pressures. Conclusion: Borderline right ventricular systolic function with moderate mitral regurgitation and severe pulmonary hypertension. When compared with previous echocardiogram, there is a decline in the right ventricular systolic function with decrease in the degree of pulmonary hypertension. Procedure: A two-dimensional transthoracic echocardiogram with color flow and Doppler was performed. The study quality was technically adequate. Comparison is made with the echocardiogram of 09/18/2024. The patient was in atrial fibrillation with heart rates between 80-105 bpm during the exam. Left Ventricle: The left ventricle is normal in size and wall thickness. The ejection fraction is estimated to be 55-60%. Septal motion is consistent with conduction abnormality. Diastolic function could not be accurately assessed due to atrial fibrillation. Right Ventricle: The right ventricle is normal size. Right ventricular systolic function is borderline reduced. Atria: The left atrium is moderately dilated. The right atrium is mildly dilated. There is no Doppler evidence for an interatrial shunt. Mitral Valve: There is mild mitral annular calcification. The mitral valve leaflets appear moderately thickened. There is moderate mitral regurgitation. The mitral regurgitant jet is eccentrically directed. Aortic Valve: The aortic valve is trileaflet. The aortic valve opens well. There is no aortic valve stenosis. No aortic regurgitation is present. Tricuspid Valve: The tricuspid valve leaflets are thin and pliable. There is mild tricuspid regurgitation. The right ventricular systolic pressure is estimated to be at least 61 mmHg based on an estimated right atrial pressure of 8 mm Hg. Pulmonic Valve: The pulmonic valve is not well seen, but is grossly normal. There is no pulmonic valvular regurgitation. Great Vessels: The aortic root is normal size. The dimensions of the ascending aorta are normal. The IVC is dilated (diameter is greater than 2.1 cm) yet it collapses greater than 50% with a sniff. This suggests a right atrial pressure of 8 mm Hg. Pericardium/ Pleura There is no pericardial effusion. There is no pleural effusion. MMode/2D Measurements & Calculations LVIDd: 5.1 cm LVOT diam: 2.0 cm LVIDs: 4.0 cm Ao root diam: 3.1 cm FS: 20.4 % Ao Arch Diam (Prox Trans): 2.2 cm EPSS: 0.88 cm IVSd: 0.82 cm LVPWd: 0.94 cm LV germain. diameter/BSA (cm/m^2): 2.7 LV sys. diameter/BSA (cm/m^2): 2.1 LA A2 area: 25.3 cm2 RA long axis: 5.5 cm LA A4 area: 27.8 cm2 RA area: 20.5 cm2 LA length (vol): 6.7 cm RA vol: 65.0 ml LA vol: 88.4 ml RA : 34.1 ml/m2 LA vol index: 46.3 ml/m2 IVC diam: 2.2 cm RVD1 (basal): 3.5 cm TAPSE: 1.5 cm Doppler Measurements & Calculations Ao V2 max: 127.1 cm/sec LVOT Max Jeromy: 77.5 cm/sec Ao V2 mean: 89.0 cm/sec LV V1 max P.4 mmHg Ao max P.5 mmHg LV V1 VTI: 15.7 cm Ao mean P.5 mmHg JUDY(I,D): 1.8 cm2 Ao V2 VTI: 27.1 cm JUDY(V,D): 1.9 cm2 sev ratio: 0.58 JUDY indexed to BSA (cm^2/m^2): 0.94 MV E max jeromy: 121.1 cm/sec TR max jeromy: 364.9 cm/sec Med Peak E' Jeromy: 10.7 cm/sec TR max P.3 mmHg E/E' med: 11.4 PA V2 max: 71.2 cm/sec Lat Peak E' Jeromy: 10.7 cm/sec PA V2 mean: 48.0 cm/sec E/E' lat: 11.4 PA mean P.0 mmHg E/e' average: 11.4 PA pr(Accel): 46.5 mmHg MV dec time: 0.17 sec SV(LVOT): 48.7 ml Reading Physician:JOLENE
== END ==
LOC: ECHO 12:33
PROVIDERS: PCP Nurse Practitioner Family; Referring Provider Nurse Practitioner Family; Visit Provider Internal Medicine
DX: I08.1 Rheumatic disorders of both mitral and tricuspid valves (principal); I48.20 Chronic atrial fibrillation, unspecified
CPT/HCPCS: 93306